=== PATIENT | female | born 1975 | race African-American/Black ===

== ENCOUNTER 2016-03-09 10:22 | Emergency (ER) | payer MEDICAID ==
[~2016-03-09 10:22] MED LIST: IBUP800T23 PO
[2016-03-09 10:24] VITALS: BP 157/89; PULSE 83; RESP 16; TEMP 98.3; O2SAT 97
[2016-03-09 11:14] LABS: BACTERIA, URINE RARE /hpf; BLOOD, URINE NEG (NEG); COMMENT (UR) CULT NOT INDICATED; CULTURE IF INDICATED CULT NOT INDICATED; GLUCOSE,URINE NEG (NEG); KETONE, URINE NEG (NEG); MUCUS URINE FEW /lpf (OCC); NITRITE,URINE NEG (NEG); SQUAMOUS EPITHELIAL CELL URINE 1 /hpf (0-5); URINE COLOR YELLOW (YELLW/STRAW)
--- NOTE | 2016-03-09 11:15 | PD ---
HPI Chief Complaint: Complaint Time Seen by Provider: 11:14 Travel History International Travel<30 days: No Contact w/Intl Traveler<30days: No Traveled to known affect area: No History of Present Illness HPI 40 year old female with PMH of PVD and migraine headache presents to the ED for evaluation of 3 day history of increased nocturnal urination. Patient states that she's been woken from sleep 3-5 times a night for the last 3 days. She endorses mild urinary urgency, increased clear vaginal discharge, unprotected sex with a single male partner. She denies fevers, chills, abdominal pain, back pain, dysuria, hematuria, recent dietary changes or increase in fluid intake. LMP "in August," patient does not use contraceptive methods. PFSH Past Medical History Arthritis: Yes Cardiovascular Problems: Yes (pvd) Diminished Hearing: No Headaches: Yes Immunizations Current: No Migraines: Yes ?: Unknown LMP: 09/03 Menopausal: No : 10 Para: 6 Miscarriage: 3 : 1 Dilation and Curettage (D&C): Yes (for one elective termination) Social History Alcohol Use: No Tobacco Use: No Substance Use: No Allergies-Medications (Allergen,Severity, Reaction): Coded Allergies: Garlic (Verified Allergy, Severe, EDEMA, 03/09/16) Penicillin (Verified Allergy, Severe, HIVES, 03/09/16) Shellfish (Verified Allergy, Severe, EDEMA, 03/09/16) Multivitamins (Verified Allergy, Intermediate, Itching, 03/09/16) Reported Meds & Prescriptions Reported Meds & Active Scripts Active Doxycycline Hyclate 100 Mg Cap 100 Mg PO BID Reported Flexeril (Cyclobenzaprine HCl) 10 Mg Tab 10 Mg PO TID Naprosyn (Naproxen) 500 Mg Tab 500 Mg PO BID Review of Systems Except as stated in HPI: all other systems reviewed are Neg Physical Exam Narrative GENERAL: Well-nourished, well-developed obese black female in no acute distress. SKIN: Warm and dry. HEAD: Normocephalic. EYES: No scleral icterus. No injection or drainage. NECK: Supple, trachea midline. No JVD or lymphadenopathy. CARDIOVASCULAR: Regular rate and rhythm without murmurs, gallops, or rubs. RESPIRATORY: Breath sounds clear and equal bilaterally. No accessory muscle use. GASTROINTESTINAL: Abdomen soft, non-tender, nondistended. Active bowel sounds. GENITOURINARY: Normal external genitalia without lesions or erythema. Vaginal vault without blood, thick white drainage present. Cervical os was closed without drainage. No cervical motion tenderness. Uterus nontender and nonenlarged. Bilateral adnexa nontender without masses. MUSCULOSKELETAL: No cyanosis, or edema. The patient is ambulatory and moves extremities spontaneously. BACK: Nontender without obvious deformity. No CVA tenderness. Data Data Last Documented VS Vital Signs Date Time Temp Pulse Resp B/P Pulse Ox O2 Delivery O2 Flow Rate FiO2 03/09/16 10:24 98.3 83 16 157/89 97 Orders Urinalysis - C+S If Indicated (03/09/16 10:52) Ed Urine Pregnancytest Poc (03/09/16 10:52) Gc And Chlamydia Pcr (03/09/16 11:37) Wet Prep Profile (03/09/16 11:37) Azithromycin Powd Pack (Zithromax Powd P (03/09/16 12:00) Doxycycline (Vibratab) (03/09/16 12:00) Labs Laboratory Tests Test 03/09/16 03/09/16 10:57 11:50 Urine Color YELLOW Urine Turbidity CLEAR Urine pH 7.0 Urine Specific [place] 1.021 Urine Protein NEG mg/dL Urine Glucose (UA) NEG mg/dL Urine Ketones NEG mg/dL Urine Occult Blood NEG Urine Nitrite NEG Urine Bilirubin NEG Urine Urobilinogen LESS THAN 2.0 MG/DL Urine Leukocyte Esterase TRACE Urine RBC 1 /hpf Urine WBC 1 /hpf Urine Squamous Epithelial 1 /hpf Cells Urine Bacteria RARE /hpf Urine Mucus FEW /lpf Microscopic Urinalysis Comment CULT NOT INDICATED Clue Cells (Wet Prep) NONE SEEN Vaginal Trichomonas (Wet Prep) NONE SEEN Vaginal Yeast (Wet Prep) NONE SEEN MDM Medical Decision Making Medical Screen Exam Complete: Yes Emergency Medical Condition: Yes Differential Diagnosis UTI versus cystitis versus STI versus overactive bladder versus other Narrative Course 40 year old female with PMH of PVD and migraine headache presents to the ED for evaluation of 3 day history of increased nocturnal urination. Patient states that she's been woken from sleep 3-5 times a night for the last 3 days. She endorses mild urinary urgency, increased clear vaginal discharge, unprotected sex with a single male partner. She denies fevers, chills, abdominal pain, back pain, dysuria, hematuria, recent dietary changes or increase in fluid intake. LMP "in August." Vitals reviewed. Physical exam reveals a well- appearing obese black female in no acute distress. Abdominal exam is reassuring. No CVA tenderness. Pelvic exam reveals vaginal vault with thick white drainage, otherwise unremarkable. UA: No culture indicated. Wet prep: Negative GC chlamydia: Pending I discussed the results of the UA with the patient. Will proceed with pelvic exam, wet prep and GC/chlamydia screening. Patient opts for empiric treatment for GC chlamydia at this time. Wet prep negative. Patient is instructed to follow-up with the health Department for test of cure, full panel of STD screening. She is instructed to follow-up with the urologist should nocturia continue. We discussed safer sex practices as well as the need to screen all sexual partners for STDs. She indicated understanding of these instructions, as amenable to plan of care. She stable and discharged home. Diagnosis Primary Impression: Nocturia more than twice per night Additional Impression: Vaginal discharge Referrals: Primary Care Physician Urologist Patient Instructions: General Instructions, Urinary Urgency and Frequency (GEN) Additional Instructions: Rest, hydrate. Take all medication as prescribed, even if your symptoms resolve. All sexual partners within the last 60 days should be treated. Barrier methods (condoms) decrease the transmission of STDs. Follow-up with the health department for test of cure and a full battery of STD screening in one week. If increased nighttime urinary frequency continues, follow up with a urologist. Return to the ED for any urgent or emergent medical condition. Scripts Doxycycline Hyclate 100 Mg [id number] Mg PO BID #14 CAP Ref 0 Prov:Reji Iqbal MD 03/09/16 Disposition: 01 DISCHARGE HOME Condition: Stable Macie Jean Mar 09, 2016 11:15
[2016-03-09] MEDS ORDERED: CYCL1TAB29 PO (11:21)
[2016-03-09] MEDS ORDERED: NAPR500 PO (11:21)
[2016-03-09] MEDS ORDERED: DOXY100C PO (11:56)
[2016-03-09] MEDS ORDERED: AZITHROMYCIN PWD FOR SUSP 1 GM PACKET PO ONE (12:00)
[2016-03-09] MEDS ORDERED: DOXYCYCLINE HYCLATE 100 MG TAB PO ONE (12:00)
[2016-03-09 16:33] LABS: CHLAMYDIA PCR NOT DETECTED (NOT DETECT); NEISSERIA PCR NOT DETECTED (NOT DETECT)
== END 2016-03-09 12:29 | disposition home or self-care (01) ==
LOC: NETRI 10:22
DX: R35.1 Nocturia (principal); N89.8 Other specified noninflammatory disorders of vagina; I73.9 Peripheral vascular disease, unspecified
CPT/HCPCS: 81001; 84703; 87210; 87491; 87591; 99283

== ENCOUNTER 2016-06-10 18:02 | Emergency (ER) | payer MEDICAID ==
[~2016-06-10] VITALS: Ht 160 cm; Wt 95.5 kg
[~2016-06-10 18:02] MED LIST changes: +CYCL1TAB29 PO; +DOXY100C PO; -IBUP800T23 PO; +NAPR500 PO
[2016-06-10 18:03] VITALS: BP 137/66; PULSE 91; RESP 22; TEMP 98.9
--- NOTE | 2016-06-10 18:08 | PD ---
Physical Exam Date Seen by Provider: Jun 10, 2016 Time Seen by Provider: 18:05 Narrative 41 y/o female with contact "lost" in right eye since this am. Pain is 10/10. No Drainage. Patient has attempted to remove it without success. Patient denies sleeping with it in. She states she put it in this am, and it seemed to move to the lateral right eye. V/S Stable. Waiting for bed placement. Data Data Last Documented VS Vital Signs Date Time Temp Pulse Resp B/P Pulse Ox O2 Delivery O2 Flow Rate FiO2 06/10/16 18:03 98.9 91 22 137/[address] [facility] Medical Record Reviewed: Yes Supervised Visit with JOSEPH: Yes Condition: Stable Camron Stiles Jun 10, 2016 18:08
[2016-06-10] MEDS ORDERED: KETO10 PO (18:13)
[2016-06-10] MEDS ORDERED: IBUP800T23 PO (18:25)
[2016-06-10] MEDS ORDERED: ERYTOIN10 RIGHT EYE (18:25)
--- NOTE | 2016-06-10 18:26 | PD ---
HPI Chief Complaint: Foreign Body Time Seen by Provider: 18:23 Travel History International Travel<30 days: No Contact w/Intl Traveler<30days: No Traveled to known affect area: No History of Present Illness HPI 41-year-old female presents to the emergency Department with complaint of her contact stuck in her right eye all day. She is attempted to remove it by flushing it with contact solution and removing it but she says it stuck to the lateral aspect of her right eye. Denies fever, chills, nausea or vomiting. Denies change in vision. Allergies to garlic, penicillin, vitamins, shellfish. No other modifying factors or associated signs and symptoms. PFSH Past Medical History Arthritis: Yes Cardiovascular Problems: Yes (pvd) Diminished Hearing: No Headaches: Yes Medical other: Yes (sciatica) Immunizations Current: No Migraines: Yes ?: Not Menopausal: No : 10 Para: 6 Miscarriage: 3 : 1 Dilation and Curettage (D&C): Yes (for one elective termination) Social History Alcohol Use: Yes (occ) Tobacco Use: No Substance Use: No Allergies-Medications (Allergen,Severity, Reaction): Coded Allergies: Garlic (Verified Allergy, Severe, EDEMA, 06/10/16) Penicillin (Verified Allergy, Severe, HIVES, 06/10/16) Shellfish (Verified Allergy, Severe, EDEMA, 06/10/16) Multivitamins (Verified Allergy, Intermediate, Itching, 06/10/16) Reported Meds & Prescriptions Reported Meds & Active Scripts Active Ibuprofen 800 Mg Tab 800 Mg PO Q6HR PRN Erythromycin Opth Oint 5 Mg/Gm Oint 1 Applic RIGHT EYE QID 7 Days Reported Ketorolac (Ketorolac Tromethamine) 10 Mg Tab 10 Mg PO BID Review of Systems Except as stated in HPI: all other systems reviewed are Neg Physical Exam Narrative GENERAL: Well-nourished, well-developed female patient, in no acute distress SKIN: Warm and dry. HEAD: Atraumatic. Normocephalic. EYES: Pupils equal and round at 3 mm with brisk reaction. PERRLA. EOMI. right lid eversion with no foreign body noted. Right eye with scleral erythema and without lid edema. No orbital tenderness, erythema or cellulitis. Right eye without photophobia. No consensual photophobia. No scleral icterus. Clear drainage. Meza lamp exam reveals what appears to be a large corneal chemical burn to the lateral aspect of the right eye. There is no contact seen in the eye. ENT: Mucosa pink and moist. Airway patent. NECK: Trachea midline. CARDIOVASCULAR: Regular rate. RESPIRATORY: No accessory muscle use. GASTROINTESTINAL: Rounded. NEUROLOGICAL: Awake and alert. Oriented 3. No obvious cranial nerve deficits. Motor grossly within normal limits. Normal speech. PSYCHIATRIC: Appropriate mood and affect; insight and judgment normal. Data Data Last Documented VS Vital Signs Date Time Temp Pulse Resp B/P Pulse Ox O2 Delivery O2 Flow Rate FiO2 06/10/16 18:03 98.9 91 22 137/66 MDM Medical Decision Making Medical Screen Exam Complete: Yes Emergency Medical Condition: Yes Medical Record Reviewed: Yes Differential Diagnosis Corneal abrasion, foreign body, eye irritation Narrative Course 41-year-old female with meza lamp exam that concludes what appears to be like a corneal chemical burn to the lateral aspect of the right eye. The patient thought she had her contact stuck in the eye and I do not see a contact in the eye. Patient denies injury or chemical insult to the eye. Right eye pH is 7. Erythromycin and ibuprofen prescribed for home. Instructed patient to follow up with ophthalmology on Sunday. Patient verbalizes understanding and agreement with treatment plan. Patient is medically cleared and stable for discharge. Discussed reasons to return to the emergency department. Instructed patient to follow up with primary care provider. Patient agrees with treatment plan. The patients vital signs are stable and the patient is stable for outpatient follow-up and treatment. Patient discharged home, stable and in no acute distress. Diagnosis Primary Impression: Injury of conjunctiva and corneal abrasion without foreign body, right eye, initial encounter Referrals: Ed[facility] Feeder Primary Care Physician Patient Instructions: Chemical Eye [place] (ED), Corneal Abrasion (ED), General Instructions Departure Forms: Tests/Procedures Additional Instructions: Ibuprofen or Tylenol as directed and as needed to reduce pain Do not patch the eye Do not rub the eye Refrigerated eye drops as needed to reduce pain Cool compresses to the eye as needed to reduce pain Follow-up with ophthalmology on Sunday Primary care provider Return to the emergency department immediately with worsening of symptoms Med/Other Pt SpecificInfo: Prescription(s) given Scripts Ibuprofen 800 Mg [id number] Mg PO Q6HR PRN (PAIN) #30 TAB Ref 0 Prov:Opal Meyer 06/10/16 Erythromycin Opth Oint 5 Mg/Gm Oint1 Applic RIGHT EYE QID 7 Days Ref 0 Prov:Opal Meyer 06/10/16 Disposition: 01 DISCHARGE HOME Condition: Stable Opal Meyer Jun 10, 2016 18:26
== END 2016-06-10 18:40 | disposition home or self-care (01) ==
LOC: NEPK 18:02
DX: S05.01XA Injury of conjunctiva and corneal abrasion without foreign body, right eye, initial encounter (principal); X58.XXXA Exposure to other specified factors, initial encounter; Y93.9 Activity, unspecified; Y92.9 Unspecified place or not applicable; Y99.9 Unspecified external cause status
CPT/HCPCS: 99283

== ENCOUNTER 2016-09-14 20:46 | Emergency (ER) | payer SELFPAY ==
[~2016-09-14] VITALS: Ht 160 cm; Wt 95.0 kg
[~2016-09-14 20:46] MED LIST changes: -CYCL1TAB29 PO; -DOXY100C PO; +ERYTOIN10 RIGHT EYE; +IBUP800T23 PO; +KETO10 PO; -NAPR500 PO
[2016-09-14 20:48] VITALS: BP 127/81; PULSE 81; RESP 16; TEMP 98.9; O2SAT 98
--- NOTE | 2016-09-14 21:40 | PD ---
Physical Exam Time Seen by Provider: 21:39 Narrative 41 y/o female here for evaluation of sharp abdominal pain which began yesterday. Vital signs reviewed. Seen at triage desk. Awaiting bed placement. Data Data Last Documented VS Vital Signs Date Time Temp Pulse Resp B/P Pulse Ox O2 Delivery O2 Flow Rate FiO2 09/14/16 20:48 98.9 81 16 127/81 98 Room Air [facility] Medical Record Reviewed: Yes Supervised Visit with JOSEPH: Marcial Polk Sep 14, 2016 21:40
[2016-09-14] MEDS ORDERED: SODIUM CHLOR 0.9% 1000 ML INJ 1,000 ML IV SCH (22:27)
[2016-09-14] MEDS ORDERED: SODIUM CHLORIDE 0.9% FLUSH 10 ML FLUSH IV FLUSH PRN (22:30)
[2016-09-14] MEDS ORDERED: MORPHINE SULFATE 4 MG/ML INJ IV PUSH ONE (22:30)
[2016-09-14 23:14] LABS: AUTOMATED NEUTROPHIL # 3.4 TH/MM3 (1.8-7.7); BASOPHIL # 0.1 TH/MM3 (0-0.2); BASOPHIL % 1.2 % (0.0-2.0); BLOOD, URINE NEG (NEG); COMMENT (UR) CULT NOT INDICATED; CULTURE IF INDICATED CULT NOT INDICATED; EOSINOPHIL # 0.1 TH/MM3 (0-0.4); EOSINOPHIL % 1.8 % (0.0-4.0); GLUCOSE,URINE NEG (NEG); HEMATOCRIT 36.2 % (35.0-46.0); HEMO FLAGS DIFF FINAL; KETONE, URINE NEG (NEG); LYMPH % 35.4 % (9.0-44.0); LYMPHOCYTE # 2.2 TH/MM3 (1.0-4.8); MEAN CELL VOLUME 83.9 FL (80.0-100.0); MEAN CORPUSCULAR HEMOGLOBIN 27.9 PG (27.0-34.0); MEAN CORPUSCULAR HGB CONC 33.3 % (32.0-36.0); MONO % 7.5 % (0.0-8.0); MUCUS URINE FEW /lpf (OCC); NEUT % 54.1 % (16.0-70.0); NITRITE,URINE NEG (NEG); PLATELET COUNT 233 TH/MM3 (150-450); RED BLOOD COUNT 4.31 MIL/MM3 (4.00-5.30); RED CELL DISTRIBUTION WIDTH 15.2 % (11.6-17.2); SQUAMOUS EPITHELIAL CELL URINE 4 /hpf (0-5); URINE COLOR YELLOW (YELLW/STRAW); WHITE BLOOD COUNT 6.2 TH/MM3 (4.0-11.0)
[2016-09-14 23:33] LABS: ALT (GPT) 11 U/L (10-53); ANION GAP 6 MEQ/L (5-15); AST (GOT) 15 U/L (15-37); BICARBONATE 29.3 MEQ/L (21.0-32.0); BLOOD UREA NITROGEN 11 MG/DL (7-18); CHLORIDE 109 MEQ/L (98-107); GLOMERULAR FILTRATION RATE 102 ML/MIN (>89); POTASSIUM 3.3 MEQ/L (3.5-5.1); SODIUM (NA) 144 MEQ/L (136-145)
[2016-09-14 23:34] LABS: ALKALINE PHOSPHATASE 89 U/L (45-117); TOTAL BILIRUBIN ADULT 0.2 MG/DL (0.2-1.0)
[2016-09-14] MEDS ORDERED: IOHEXOL 350 MG/ML 10 ML VIAL (for RAD DIAG) IV ONE (23:52)
--- NOTE | 2016-09-15 00:09 | RADRPT ---
EXAM DATE/TIME: 09/14/2016 23:41 [place] COMPARISON: No previous studies available for comparison. INDICATIONS : Right upper quadrant abdominal pain. IV CONTRAST: 100 cc Omnipaque 350 (iohexol) IV ORAL CONTRAST: No oral contrast ingested. RADIATION DOSE: 11.36 CTDIvol (mGy) MEDICAL HISTORY : None SURGICAL HISTORY : None. ENCOUNTER: Initial ACUITY: 1 day PAIN SCALE: 7/10 LOCATION: Right upper quadrant abdomen TECHNIQUE: Volumetric scanning of the abdomen and pelvis was performed. Using automated exposure control and ad justment of the mA and/or kV according to patient size, radiation dose was kept as low as reasonably achievable to obtain optimal diagnostic quality images. DICOM format image data is available electro nically for review and comparison. FINDINGS: LOWER LUNGS: The visualized lower lungs are clear. LIVER: Homogeneous density without lesion. There is no dilation of the biliary tree. No calcified gallston es. SPLEEN: Normal size without lesion. PANCREAS: Within normal limits. KIDNEYS: Normal in size and shape. There is no mass, stone or hydronephrosis. ADRENAL GLANDS: Within normal limits. VASCULAR: There is no aortic aneurysm. BOWEL/MESENTERY: Scattered colonic diverticula. No evidence of acute diverticulitis. No evidence of bowel dilatation. No free air or free fluid. Appendix within normal limits. ABDOMINAL WALL: Within normal limits. RETROPERITONEUM: There is no lymphadenopathy. BLADDER: No wall thickening or mass. REPRODUCTIVE: Within normal limits. INGUINAL: There is no lymphadenopathy or hernia. MUSCULOSKELETAL: Sclerosis and reactive bony change of the pubic symphysis. CONCLUSION: No acute findings in the abdomen and pelvis. Armando Álvarez MD on September 15, 2016 at 0:01 Board Certified Radiologist. This report was verified electronically.
--- NOTE | 2016-09-15 00:15 | PD ---
HPI Chief Complaint: Abdominal Pain Time Seen by Provider: 21:54 Travel History International Travel<30 days: No Contact w/Intl Traveler<30days: No Traveled to known affect area: No History of Present Illness HPI Patient is 41 years old. She arrives with sharp right abdomen pain. The pain comes and goes. It started yesterday. Appetite has been normal. There has been no vomiting or diarrhea. Occasional nausea is reported. She denies fever. No similar pains have occurred previously. Last menstruation was over 2 months ago which is abnormal for her. She's had no abnormal vaginal discharge or bleeding. PFSH Past Medical History Arthritis: Yes Cardiovascular Problems: Yes (pvd) Diminished Hearing: No Headaches: Yes Immunizations Current: No Migraines: Yes Tetanus Vaccination: > 5 Years ?: Unknown LMP: unknown Menopausal: No : 10 Para: 6 Miscarriage: 3 : 1 Dilation and Curettage (D&C): Yes (for one elective termination) Past Surgical History Surgical History: No Previous Surgery Social History Alcohol Use: Yes (occ) Tobacco Use: No Substance Use: No Allergies-Medications (Allergen,Severity, Reaction): Coded Allergies: Garlic (Verified Allergy, Severe, EDEMA, 09/14/16) Penicillin (Verified Allergy, Severe, HIVES, 09/14/16) Shellfish (Verified Allergy, Severe, EDEMA, 09/14/16) Multivitamins (Verified Allergy, Intermediate, Itching, 09/14/16) Reported Meds & Prescriptions Reported Meds & Active Scripts Active No Active Prescriptions or Reported Medications Review of Systems Except as stated in HPI: all other systems reviewed are Neg Physical Exam Narrative GENERAL: 41-year-old female no acute distress SKIN: Focused skin assessment warm/dry. HEAD: Atraumatic. Normocephalic. EYES: Pupils equal and round. No scleral icterus. No injection or drainage. ENT: No nasal bleeding or discharge. Mucous membranes pink and moist. NECK: Trachea midline. No JVD. CARDIOVASCULAR: Regular rate and rhythm. No murmur appreciated. RESPIRATORY: No accessory muscle use. Clear to auscultation. Breath sounds equal bilaterally. GASTROINTESTINAL: Denies palpation of the right upper quadrant. Soft. No rebound. No flank tenderness. MUSCULOSKELETAL: No obvious deformities. No clubbing. No cyanosis. No edema. NEUROLOGICAL: Awake and alert. No obvious cranial nerve deficits. Motor grossly within normal limits. Normal speech. PSYCHIATRIC: Appropriate mood and affect; insight and judgment normal. Data Data Last Documented VS Vital Signs Date Time Temp Pulse Resp B/P Pulse Ox O2 Delivery O2 Flow Rate FiO2 09/14/16 20:48 98.9 81 16 127/81 98 Room Air Vital signs reviewed Orders Complete Blood Count With Diff (09/14/16 22:27) Comprehensive Metabolic Panel (09/14/16 22:27) Lipase (09/14/16 22:27) Urinalysis - C+S If Indicated (09/14/16 22:27) Ct Abd/Pel W Iv Contrast(Rout) (09/14/16 22:27) Iv Access Insert/Monitor (09/14/16 22:27) Ecg Monitoring (09/14/16 22:27) Oximetry (09/14/16 22:27) Sodium Chlor 0.9% 1000 Ml Inj (Ns 1000 M (09/14/16 22:27) Sodium Chloride 0.9% Flush (Ns Flush) (09/14/16 22:30) Morphine Inj (Morphine Inj) (09/14/16 22:30) Iohexol 350 Inj (Omnipaque 350 Inj) (09/14/16 23:52) Labs Laboratory Tests Test 09/14/16 23:00 White Blood Count 6.2 TH/MM3 Red Blood Count 4.31 MIL/MM3 Hemoglobin 12.0 GM/DL Hematocrit 36.2 % Mean Corpuscular Volume 83.9 FL Mean Corpuscular Hemoglobin 27.9 PG Mean Corpuscular Hemoglobin 33.3 % Concent Red Cell Distribution Width 15.2 % Platelet Count 233 TH/MM3 Mean Platelet Volume 8.6 FL Neutrophils (%) (Auto) 54.1 % Lymphocytes (%) (Auto) 35.4 % Monocytes (%) (Auto) 7.5 % Eosinophils (%) (Auto) 1.8 % Basophils (%) (Auto) 1.2 % Neutrophils # (Auto) 3.4 TH/MM3 Lymphocytes # (Auto) 2.2 TH/MM3 Monocytes # (Auto) 0.5 TH/MM3 Eosinophils # (Auto) 0.1 TH/MM3 Basophils # (Auto) 0.1 TH/MM3 CBC Comment DIFF FINAL Differential Comment Urine Color YELLOW Urine Turbidity HAZY Urine pH 7.0 Urine Specific [place] 1.028 Urine Protein TRACE mg/dL Urine Glucose (UA) NEG mg/dL Urine Ketones NEG mg/dL Urine Occult Blood NEG Urine Nitrite NEG Urine Bilirubin NEG Urine Urobilinogen 4.0 MG/DL Urine Leukocyte Esterase NEG Urine RBC 2 /hpf Urine WBC 4 /hpf Urine Squamous Epithelial 4 /hpf Cells Urine Mucus FEW /lpf Microscopic Urinalysis Comment CULT NOT INDICATED Sodium Level 144 MEQ/L Potassium Level 3.3 MEQ/L Chloride Level 109 MEQ/L Carbon Dioxide Level 29.3 MEQ/L Anion Gap 6 MEQ/L Blood Urea Nitrogen 11 MG/DL Creatinine 0.75 MG/DL Estimat Glomerular Filtration 102 ML/MIN Rate Random Glucose 102 MG/DL Calcium Level 8.6 MG/DL Total Bilirubin 0.2 MG/DL Aspartate Amino Transf 15 U/L (AST/SGOT) Alanine Aminotransferase 11 U/L (ALT/SGPT) Alkaline Phosphatase 89 U/L Total Protein 7.2 GM/DL Albumin 3.2 GM/DL Lipase 249 U/L [facility] Medical Decision Making Medical Screen Exam Complete: Yes Emergency Medical Condition: Yes Medical Record Reviewed: Yes Differential Diagnosis Constipation, Gastritis, Acute Cholecystitis, Biliary Colic, Pancreatitis, MEADE , Hepatitis, Bowel Obstruction, Cystitis, Mesenteric Ischemia, AAA, Appendicitis , Renal Stone/Hydronephrosis, GERD, perforated viscous Narrative Course CBC & BMP Diagram 09/14/16 23:00 LFTs normal Lipase [address] ab/pelvis: no acute disease The patient is resting comfortably and feels better, is alert and in no distress. The patients results and examination findings were discussed. The repeat examination is unremarkable and benign. The history, exam, diagnostic testing, and current condition do not suggest any significant pathology to warrant further testing, continued ED treatment, admission, or surgical evaluation at this point. The vital signs have been stable. The patient does not have uncontrollable pain, intractable vomiting, or other significant symptoms. The patient's condition is stable and appropriate for discharge. The patient will pursue further outpatient evaluation with a primary care physician or other designated or consulting physician as indicated in the discharge instructions. The patient expressed understanding and was agreeable with this plan. Diagnosis Primary Impression: Abdominal pain Qualified Code: R10.11 - Right upper quadrant abdominal pain Additional Impression: Hypokalemia Referrals: Primary Care Physician call for appointment Additional Instructions: You have a choice when it comes to health care, and we are glad that you chose [facility]. Hopefully, we have met your expectations on today's visit. You are welcome to return to [facility] at any time, as we are committed to meeting the health care needs of our community. Med/Other Pt SpecificInfo: No Change to Meds Scripts No Active Prescriptions or Reported Meds Disposition: 01 DISCHARGE HOME Condition: Jose Good MD Sep 15, 2016 00:15
[2016-09-15] MEDS ORDERED: POTASSIUM CHLORIDE 20 MEQ CONTROLLED RELEASE TAB PO ONE (00:30)
== END 2016-09-15 01:20 | disposition home or self-care (01) ==
LOC: NEPD 20:46
DX: R10.11 Right upper quadrant pain (principal); E87.6 Hypokalemia; R11.0 Nausea; M13.88 Other specified arthritis, other site; I73.9 Peripheral vascular disease, unspecified; Z88.0 Allergy status to penicillin
CPT/HCPCS: 74177; 80053; 81001; 83690; 85025; 96374; 99285; J2270; J7030; Q9967

== ENCOUNTER 2016-11-27 16:18 | Emergency (ER) | payer SELFPAY ==
[~2016-11-27] VITALS: Ht 160 cm; Wt 100.0 kg
[2016-11-27 16:20] VITALS: BP 132/65; PULSE 94; RESP 15; TEMP 99.1; O2SAT 95
== END 2016-11-27 18:58 | disposition left against medical advice (07) ==
LOC: NED 16:18
DX: Z53.21 Procedure and treatment not carried out due to patient leaving prior to being seen by health care provider (principal)
CPT/HCPCS: 99281

== ENCOUNTER 2016-12-01 08:28 | Emergency (ER) | payer SELFPAY ==
[~2016-12-01] VITALS: Ht 160 cm; Wt 100.0 kg
[2016-12-01 08:30] VITALS: BP 137/85; PULSE 82; RESP 12; TEMP 98.5; O2SAT 99
[2016-12-01 09:11] LABS: BACTERIA, URINE RARE /hpf; BLOOD, URINE NEG (NEG); COMMENT (UR) CULT NOT INDICATED; CULTURE IF INDICATED CULT NOT INDICATED; GLUCOSE,URINE NEG (NEG); KETONE, URINE NEG (NEG); MUCUS URINE FEW /lpf (OCC); NITRITE,URINE NEG (NEG); PH, URINE 7.5 (5.0-8.5); SQUAMOUS EPITHELIAL CELL URINE 8 /hpf (0-5); URINE COLOR YELLOW (YELLW/STRAW)
[2016-12-01] MEDS ORDERED: DICY10 PO (09:41)
--- NOTE | 2016-12-01 09:42 | PD ---
HPI Chief Complaint: Complaint Time Seen by Provider: 09:20 Travel History International Travel<30 days: No Contact w/Intl Traveler<30days: No Traveled to known affect area: No History of Present Illness HPI This 41-year-old woman presents to the emergency department complaining of abdominal pain. States the pain is more in the epigastrium and radiates around to both sides but more on the right. The mom about 3 days or so. Then intermittently sharp stabbing pains. Symptoms last a few minutes at a time. There is no aggravating or alleviating factors. It is not associated with eating. She is been peeing a lot as well. She has no subtle bit of vaginal odor. She sexually active one male partner monogamous relationship. He has no symptoms that she knows of. No other complaints. History Past Medical History Medical History: Denies Significant Hx Tetanus Vaccination: Unknown Menopausal: No : 10 Para: 6 Dilation and Curettage (D&C): Yes Social History Alcohol Use: Yes (occ) Tobacco Use: No Allergies-Medications (Allergen,Severity, Reaction): Coded Allergies: garlic (Unverified Allergy, Severe, EDEMA, 12/01/16) penicillin G (Unverified Allergy, Severe, HIVES, 12/01/16) shellfish derived (Unverified Allergy, Severe, EDEMA, 12/01/16) vitamins (Unverified Allergy, Intermediate, Itching, 12/01/16) Reported Meds & Prescriptions Reported Meds & Active Scripts Active No Active Prescriptions or Reported Medications Review of Systems Except as stated in HPI: all other systems reviewed are Neg Physical Exam Narrative GENERAL: Well-appearing 41-year-old woman, no acute distress. SKIN: Focused skin assessment warm/dry. CARDIOVASCULAR: Regular rate and rhythm. No murmur appreciated. RESPIRATORY: No accessory muscle use. Clear to auscultation. Breath sounds equal bilaterally. GASTROINTESTINAL: Abdomen is obese and soft. There is minimal epigastric right upper quadrant tenderness. Negative Rubio's. MUSCULOSKELETAL: No obvious deformities. No clubbing. No cyanosis. No edema. NEUROLOGICAL: Awake and alert. No obvious cranial nerve deficits. Motor grossly within normal limits. Normal speech. PSYCHIATRIC: Appropriate mood and affect; insight and judgment normal. Data Data Last Documented VS Vital Signs Date Time Temp Pulse Resp B/P (MAP) Pulse Ox O2 Delivery O2 Flow Rate FiO2 12/01/16 08:30 98.5 82 12 137/85 (102) 99 Orders Orders Urinalysis - C+S If Indicated (12/01/16 08:39) Ed Urine Pregnancytest Poc (12/01/16 08:39) Ed Poc Ultrasound (12/01/16 09:30) Gc And Chlamydia Pcr (12/01/16 09:37) Labs Laboratory Tests Test 12/01/16 08:47 Urine Color YELLOW Urine Turbidity HAZY Urine pH 7.5 Urine Specific [place] 1.023 Urine Protein NEG mg/dL Urine Glucose (UA) NEG mg/dL Urine Ketones NEG mg/dL Urine Occult Blood NEG Urine Nitrite NEG Urine Bilirubin NEG Urine Urobilinogen LESS THAN 2.0 MG/DL Urine Leukocyte Esterase SMALL Urine RBC 1 /hpf Urine WBC 3 /hpf Urine Squamous Epithelial Cells 8 /hpf Urine Bacteria RARE /hpf Urine Mucus FEW /lpf Microscopic Urinalysis Comment CULT NOT INDICATED MDM Medical Decision Making Medical Screen Exam Complete: Yes Emergency Medical Condition: Yes Differential Diagnosis Gastritis, abdominal pain, UTI, hepatobiliary disease, cervicitis, other Narrative Course Medical decision making 40-year-old woman with epigastric pain. She also noticed some vaginal odor but no discharge. Previous similar admissions for vague abdominal symptoms. She had a CAT scan that was negative back in August. She was treated for empiric gonorrhea and Chlamydia in the past with negative cultures ultimately. She looks well. She is a very benign exam. Bedside ultrasound shows normal gallbladder. Recommend supportive treatment at this time. Trial Bentyl. Outpatient follow-up. Procedures Procedure Narrative Point of care ultrasound: Focused has abdominal ultrasounds perform immediate the bedside to evaluate for evidence of cholecystitis. Gallbladder is normal appearance. There is no gallbladder wall thickening, pericholecystic fluid, or stones seen. Diagnosis Primary Impression: Abdominal pain Additional Instructions: Take Bentyl as prescribed. Follow-up with your primary doctor 1 week ago effusion do not feel completely better. Return to the emergency department for any worsening abdominal pain, high fevers , bloody diarrhea, or any other new or worsening symptoms. Med/Other Pt SpecificInfo: Prescription(s) given Scripts Dicyclomine (Bentyl) 10 Mg Cap 10 MG PO TID for ABDOMINAL CRAMPING, #15 CAP 0 Refills Prov: Yaya Perez MD 12/01/16 Disposition: 01 DISCHARGE HOME Condition: Stable Yaya Perez MD Dec 01, 2016 09:42
[2016-12-01 10:38] VITALS: BP 132/81
[2016-12-01 12:31] LABS: CHLAMYDIA PCR DETECTED (NOT DETECT); NEISSERIA PCR NOT DETECTED (NOT DETECT)
== END 2016-12-01 10:40 | disposition home or self-care (01) ==
LOC: NEPD 08:28
DX: R10.13 Epigastric pain (principal); Z88.0 Allergy status to penicillin
CPT/HCPCS: 81001; 84703; 87491; 87591; 99283

== ENCOUNTER 2017-02-24 14:27 | Emergency (ER) | payer MEDICAID ==
[~2017-02-24 14:27] MED LIST changes: +DICY10 PO; -ERYTOIN10 RIGHT EYE; -IBUP800T23 PO; -KETO10 PO
[2017-02-24 14:29] VITALS: BP 141/84; PULSE 80; RESP 14; TEMP 98.5; O2SAT 100
--- NOTE | 2017-02-24 16:02 | RADRPT ---
EXAM DATE/TIME: 02/24/2017 14:44 [facility] COMPARISON: No previous studies available for comparison. INDICATIONS : Left foot pain. No prior trauma. MEDICAL HISTORY : None. SURGICAL HISTORY : None. ENCOUNTER: Initial ACUITY: 1 week PAIN SCORE: 10/10 LOCATION: Left foot. FINDINGS: There is no evidence of acute fracture. Bony mineralization is normal. Inferior and posterior calcane al spurs are present. Joint spaces are maintained. CONCLUSION: 1. There is no evidence of acute fracture. Calcaneal spurs Thomas Jade MD on February 24, 2017 at 15:59 Board Certified Radiologist. This report was verified electronically.
--- NOTE | 2017-02-24 16:09 | PD ---
HPI Chief Complaint: Pain: Acute or Chronic Time Seen by Provider: 15:40 Travel History International Travel<30 days: No Contact w/Intl Traveler<30days: No Traveled to known affect area: No History of Present Illness HPI 41-year-old female presents to emergency department complaint of left foot pain with ambulation times one week. Says she's been seen for left foot pain and has a heel spur. Denies new or recent injury. Denies fever, vomiting. Denies paresthesias or loss of sensation, strength/, decreased strength to the affected extremity. Rates pain 10/10. Describes a throbbing and shooting. Pain is worse with evaluation. Better at rest. Has not taken any medications to alleviate her symptoms. Has tried thicker socks and Dr. Jonas's shoe support. PCP is Dr. Gillespie. Allergies to penicillin, garlic and shellfish. History of hypokalemia. Has no other medical complaints. No other modifying factors or associated signs and symptoms. PFSH Past Medical History Arthritis: Yes Cardiovascular Problems: Yes (pvd) Diminished Hearing: No Headaches: Yes Immunizations Current: No Migraines: Yes ?: Not Menopausal: No : 10 Para: 6 Miscarriage: 3 : 1 Dilation and Curettage (D&C): Yes Social History Alcohol Use: Yes (occ) Tobacco Use: No Substance Use: No Allergies-Medications (Allergen,Severity, Reaction): Coded Allergies: garlic (Unverified Allergy, Severe, EDEMA, 02/24/17) penicillin G (Unverified Allergy, Severe, HIVES, 02/24/17) shellfish derived (Unverified Allergy, Severe, EDEMA, 02/24/17) Reported Meds & Prescriptions Reported Meds & Active Scripts Active Review of Systems Except as stated in HPI: all other systems reviewed are Neg Physical Exam Narrative GENERAL: Well-nourished, well-developed black female patient, in no acute distress SKIN: Warm and dry. HEAD: Atraumatic. Normocephalic. EYES: Pupils equal and round. No scleral icterus. No injection or drainage. ENT: Mucosa pink and moist. Airway patent. NECK: Trachea midline. CARDIOVASCULAR: Regular rate. RESPIRATORY: No accessory muscle use. GASTROINTESTINAL: Obese. MUSCULOSKELETAL: Left shoulder with tenderness to the bottom of the heel on palpation; without erythema, edema, ecchymosis; no obvious deformity; 2+ pupils ; sensory intact. Patient ambulatory with a normal gait.. Left lower extremity supple and non-tense with 2+ pedal pulse and sensory intact without erythema or edema. No obvious deformities. No clubbing. No cyanosis. No edema. NEUROLOGICAL: Awake and alert. Oriented 3. No obvious cranial nerve deficits. Motor grossly within normal limits. Normal speech. PSYCHIATRIC: Appropriate mood and affect; insight and judgment normal. Data Data Last Documented VS Vital Signs Date Time Temp Pulse Resp B/P (MAP) Pulse Ox O2 Delivery O2 Flow Rate FiO2 02/24/17 14:29 98.5 80 14 141/84 (103) 100 Orders Orders Foot, Complete ([id number]) (02/24/17 ) Ibuprofen (Motrin) (02/24/17 16:15) Ed Discharge Order (02/24/17 16:09) MDM Medical Decision Making Medical Screen Exam Complete: Yes Emergency Medical Condition: Yes Medical Record Reviewed: Yes Differential Diagnosis Heel spur, plantar fasciitis, stress fracture Narrative Course 41-year-old female with history of left heel spur presents with complaint of continued left foot pain. Denies new or recent injury. Left foot x-ray was ordered in triage. 1615: Left foot x-ray concludes: There is no evidence of acute fracture; Calcaneal spurs. The patient crutches for support And she declined. Ibuprofen administered in the ER. Instructed patient to follow up with podiatry. Instructed patient to follow up with primary care provider. Patient verbalizes understanding and agreement with treatment plan. Patient is medically cleared and stable for discharge. Discussed reasons to return to the emergency department. Patient agrees with treatment plan. The patients vital signs are stable and the patient is stable for outpatient follow-up and treatment. Patient discharged home, stable and in no acute distress. Diagnosis Primary Impression: Calcaneal spur Qualified Codes: M77.32 - Calcaneal spur, left foot Referrals: Resource Manager [facility]ster Primary Care Physician Patient Instructions: General Instructions, Heel Spur (ED) Additional Instructions: Ibuprofen or Tylenol as recognizing for pain Shoe supports as needed for pain with walking Crutches, cane, walker as needed for support with walking Follow-up with podiatry Follow-up with primary care provider Med/Other Pt SpecificInfo: No Change to Meds, No Meds Exist/No RX given Disposition: 01 DISCHARGE HOME Condition: Stable Opal Meyer Feb 24, 2017 16:09
[2017-02-24] MEDS ORDERED: IBUPROFEN 800 MG TAB PO ONE (16:15)
== END 2017-02-24 16:21 | disposition home or self-care (01) ==
LOC: NEPD 14:27
DX: M77.32 Calcaneal spur, left foot (principal); E87.6 Hypokalemia; M19.90 Unspecified osteoarthritis, unspecified site; I73.9 Peripheral vascular disease, unspecified; Z88.0 Allergy status to penicillin
CPT/HCPCS: 73630; 99283

== ENCOUNTER 2017-03-10 12:28 | Emergency (ER) | payer MEDICAID ==
[2017-03-10 13:17] LABS: BACTERIA, URINE RARE /hpf; BILIRUBIN, URINE NEG (NEG); BLOOD, URINE NEG (NEG); COMMENT (UR) CULT NOT INDICATED; CULTURE IF INDICATED CULT NOT INDICATED; GLUCOSE,URINE NEG (NEG); KETONE, URINE NEG (NEG); MUCUS URINE FEW /lpf (OCC); NITRITE,URINE NEG (NEG); PH, URINE 5.5 (5.0-8.5); SQUAMOUS EPITHELIAL CELL URINE 4 /hpf (0-5); URINE COLOR YELLOW (YELLW/STRAW); URINE LEUKOCYTE ESTERASE LARGE (NEG)
[2017-03-10 15:55] LABS: CHLAMYDIA PCR NOT DETECTED (NOT DETECT); NEISSERIA PCR NOT DETECTED (NOT DETECT)
== END 2017-03-10 14:00 | disposition home or self-care (01) ==
LOC: NEPD 12:28
DX: N89.8 Other specified noninflammatory disorders of vagina (principal); R30.0 Dysuria; I73.9 Peripheral vascular disease, unspecified
CPT/HCPCS: 81001; 84703; 87210; 87491; 87591; 99284